=== PATIENT | male | born 1945 ===

== ENCOUNTER 2021-03-31 05:56 | Day surgery (SDC) | payer OTHER ==
[~2021-03-31 05:56] MED LIST: CRESTOR20 MG PO; FENOFIBRATE50 MG PO; GLIMEPIRIDE1 MG
== END 2021-03-31 14:10 | disposition home or self-care (01) ==
LOC: CIR.AMB 05:56
PROVIDERS: ATTEND Surgery Surgery of the Hand
DX: M72.0 Palmar fascial fibromatosis [Dupuytren] (principal)